=== PATIENT | male | born 1950 | race Caucasian/White ===

== ENCOUNTER 2020-08-30 14:58 | Emergency (ER) | payer MEDICARE ==
[~2020-08-30] VITALS: Ht 177 cm; Wt 78.4 kg
[2020-08-30] MEDS ORDERED: morphine INJ 10 MG/ML 1ML (SYR OR VIAL) IM STA (16:01)
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
[2020-08-30] MEDS ORDERED: HYDROcodone/APAP 5 MG/325 MG (LORTAB) TAB PO ONE (16:45)
--- NOTE | 2020-08-30 16:59 | Diagnostic Imaging Report ---
INDICATION: Shoulder pain COMPARISON: Humerus exam from earlier same day FINDINGS: 3 radiographic views of the right shoulder were obtained. There is inferior subluxation of the acromion in regards to the clavicle consistent with AC joint injury. Osseous structures, however, appear to be intact. Glenohumeral joint space is maintained. No unexpected radiopaque foreign bodies are seen. Included portions of the right hemithorax clear. IMPRESSION: 1. Findings consistent with right AC joint injury. 2. No acute fracture Dictated by: Dictated on workstation # [id number]
[2020-08-30] MEDS ORDERED: OXYC1TAB87 PO (17:14)
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
[2020-08-30 17:23] VITALS: BP 150/82
== END 2020-08-30 17:23 | disposition home or self-care (01) ==
LOC: EDUNIT# 14:58 → ER 15:04
DX: S43.101A Unspecified dislocation of right acromioclavicular joint, initial encounter (principal); I10 Essential (primary) hypertension; I25.10 Atherosclerotic heart disease of native coronary artery without angina pectoris; F17.210 Nicotine dependence, cigarettes, uncomplicated; Z95.1 Presence of aortocoronary bypass graft; V89.2XXA Person injured in unspecified motor-vehicle accident, traffic, initial encounter
CPT/HCPCS: 73030; 73060; 96372; 99283; A4565